=== PATIENT | female | born 1995 | race Caucasian/White ===

== ENCOUNTER 2017-01-05 05:19 | Emergency (ER) | payer OTHER ==
[2017-01-05] MEDS ORDERED: METOCLOPRAMIDE INJ 10MG/2ML VIAL (J2765) As Ordered ONE (05:37)
[2017-01-05 05:41] LABS: BASO % 0.1 % (0.0-1.0); EOS # 0.2 K/mm3 (0.0-0.50); EOS % 1.3 % (0.0-3.0); LARGE UNSTAINED CELL # 0.1 K/mm3 (0.0-0.4); LARGE UNSTAINED CELL % 0.5 % (0.0-4.0); LYMPH # 1.3 K/mm3 (1.5-6.5); LYMPH % 7.2 % (24.0-44.0); MEAN CORPUSCULAR HEMOGLOBIN 30.6 pg (27.0-33.0); MEAN CORPUSCULAR HGB CONC 33.4 g/dl (32.0-36.5); MEAN CORPUSCULAR VOLUME 91.6 fl (80.0-96.0); MONO # 0.5 K/mm3 (0.0-0.8); NEUTROPHILS # 15.4 K/mm3 (1.8-7.7); PLATELET COUNT, AUTOMATED 186 k/mm3 (150-450); RED CELL DISTRIBUTION WIDTH 12.1 % (11.5-14.5); WHITE BLOOD COUNT 17.5 K/mm3 (4.0-10.0)
[2017-01-05 06:02] LABS: ALBUMIN 3.9 GM/DL (3.2-5.2); ALBUMIN/GLOBULIN RATIO 1.18 (1.00-1.93); ALKALINE PHOSPHATASE 61 U/L (45-117); ALT/SGPT 35 U/L (12-78); AMYLASE 57 U/L (25-115); ANION GAP 6 MEQ/L (8-16); AST/SGOT 12 U/L (15-37); BILIRUBIN,DIRECT < 0.1 MG/DL (0.0-0.2); BILIRUBIN,TOTAL 0.3 MG/DL (0.2-1.0); BLOOD UREA NITROGEN 14 MG/DL (7-18); CALCIUM LEVEL 8.7 MG/DL (8.5-10.1); CARBON DIOXIDE LEVEL 28 MEQ/L (21-32); CHLORIDE LEVEL 109 MEQ/L (98-107); GLOMERULAR FILTRATION RATE > 60.0 (>60); GLUCOSE, FASTING 98 MG/DL (70-105); POTASSIUM SERUM 3.7 MEQ/L (3.5-5.1); SODIUM LEVEL 143 MEQ/L (136-145); TOTAL PROTEIN 7.2 GM/DL (6.4-8.2)
--- NOTE | 2017-01-05 06:32 | EDDOCDS ---
Physician Documentation [facility] Name: Jerry Epstein Age: 21 yrs Sex: Female : 1995 Arrival Date: 01/05/2017 Time: 05:19 Bed 9 Private MD: Disposition: 01/05/17 06:14 Discharged to Home/Self Care. Impression: Infectious gastroenteritis and colitis, unspecified - viral. - Condition is Stable. - Discharge Instructions: Clear Liquid Diet. - Prescriptions for Reglan 10 mg Oral Tablet - take 1 tablet by ORAL route every 6 hours take 30 minutes before meals and at bedtime; 20 tablet. - Medication Reconciliation, Local Pharmacy Hours form. - Follow up: [facility]; When: Call to arrange an appointment; Reason: Recheck today's complaints. - Problem is new. - Symptoms have improved. Historical: - Allergies: IODINEIODINE CONTAINING; Keflex; - Home Meds: 1. Maxalt 10 mg oral tab 1 tab - PMHx: Migraines; - PSHx: jaw surgery; - Social history: Smoking status: Patient states was never smoker of tobacco. No barriers to communication noted, The patient speaks fluent Polish, Speaks appropriately for age. - Family history: Not pertinent. - : The pt / caregiver states he / she is not on anticoagulants. Home medication list is obtained from the patient. - Exposure Risk Screening:: None identified. PSYCHOLOGIST: 01/05 05:26 LMP N/A - control method sls1 Vital Signs: 05:26 BP 122 / 64; Pulse 100; Resp 18; Pulse Ox 98% on R/A; Weight 56.25 kg / 124.01 lbs; sls1 Height 62 in. (157.48 cm); Pain 10/10; 05:30 Temp 97.8(TE); sls1 06:21 BP 111 / 57; Pulse 86; Resp 18; Temp 99.1(TE); Pulse Ox 99% on R/A; Pain 8/10; mdr 05:26 Body Mass Index 22.68 (56.25 kg, 157.48 cm) sls1 MDM: 05:30 IV Saline Lock ordered. cs11 05:30 NS 0.9% 1000 ml IV at bolus once ordered. cs11 05:30 Metoclopramide 10 mg IV at 40 mg/hr once over 15 mins ordered. cs11 05:30 CBC with Diff Ordered. EDMS 05:30 MED Profile Ordered. EDMS 05:30 Liver Profile Ordered. EDMS 05:30 Amylase Ordered. EDMS 05:31 Lipase Ordered. EDMS 05:48 CBC with Diff Reviewed. cs11 05:52 Financial registration complete. hs2 05:52 [facility] Payment Agreement was scanned into [employer] and attached to record. hs2 06:11 MED Profile Reviewed. cs11 06:11 Liver Profile Reviewed. cs11 06:11 Amylase Reviewed. cs11 06:11 Lipase Reviewed. cs11 Administered Medications: 05:45 Drug: NS 0.9% 1000 ml [sodium chloride 0.9 % intravenous solution] Route: IV; Rate: kas2 bolus; Site: left antecubital; 06:30 Follow up: IV Status: Completed infusion; IV Intake: 1000ml cf2 05:46 Drug: Metoclopramide 10 mg [metoclopramide 5 mg/mL injection solution] Route: IV; Rate: kas2 40 mg/hr; Infused Over: 15 mins; Site: left antecubital; Signatures: Dispatcher [employer] Afshan Hobson RN RN sls1 Yevgeniy Joe DO DO cs11 Priya Enriquez, Reg Reg hs2 Celeste Lee RN RN cf2 Sarah Branham RN kas2 The chart was reviewed and I authenticate all verbal orders and agree with the evaluation and treatment provided.Attachments: 05:52 [facility] Payment Agreement hs2 MTDD
--- NOTE | 2017-01-05 06:32 | EDDOCDS ---
Nurse's Notes [facility] Name: Jerry Epstein Age: 21 yrs Sex: Female : 1995 Arrival Date: 01/05/2017 Time: 05:19 Bed 9 Private MD: Diagnosis: Infectious gastroenteritis and colitis, unspecified-viral Presentation: 01/05 05:24 Presenting complaint: Patient states: thinks she has food poisoning, reports woke at 3 sls1 am vomiting, reports cold sweats, diarrhea. Suicide/Homicide risk assessment- the patient denies having any suicidal and/or homicidal ideations and does not present with any other emotional, behavioral or mental health complaints. 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 Transition of care: patient was not received from another setting of care. 05:24 Acuity: YENNIFER Level 3 sls1 05:24 Method Of Arrival: Walkin/Carried/Asstd sls1 06:31 Adult Sepsis Screening: The patient does not have new or worsening altered mentation. cf2 Patient's respiratory rate is less than 22. Systolic blood pressure is greater than 100. Patient has a qSOFA score of 0- Negative Sepsis Screen. Triage Assessment: 05:26 General: Appears in no apparent distress, Behavior is appropriate for age, cooperative. sls1 Pain: Location: abdomen Pain currently is 10 out of 10 on a pain scale. Pt Declines HIV testing. Neurological: No deficits noted. Respiratory: No deficits noted. GI: Reports bloating, cramping, diarrhea, nausea, vomiting. ALLERGIST/MD: 05:26 LMP N/A - control method sls1 Historical: - Allergies: IODINEIODINE CONTAINING; Keflex; - Home Meds: 1. Maxalt 10 mg oral tab 1 tab - PMHx: Migraines; - PSHx: jaw surgery; - Social history: Smoking status: Patient states was never smoker of tobacco. No barriers to communication noted, The patient speaks fluent Kiswahili, Speaks appropriately for age. - Family history: Not pertinent. - : The pt / caregiver states he / she is not on anticoagulants. Home medication list is obtained from the patient. - Exposure Risk Screening:: None identified. Screenin:45 Screening information is obtained from the patient. Fall risk: No risks identified. kas2 Assistance ADL's: requires no assistance with activities of daily living. Abuse/DV Screen: The patient / caregiver reports he/she is: not in a situation that causes fear, pain or injury. Nutritional screening: No deficits noted. Advance Directives: Currently, there is no health care proxy. There is no active DNR order. There is no living will. There is no Power of Waters[employer] Program Manager. home support is adequate. Assessment: 05:43 General: Appears in no apparent distress, uncomfortable, well nourished, well groomed, kas2 Behavior is appropriate for age, cooperative. Pain: Location: abdomen Pain currently is 5 out of 10 on a pain scale. Neurological: Level of Consciousness is awake, alert, Oriented to person, place, time. Cardiovascular: Capillary refill < 3 seconds Heart tones S1 S2 present Rhythm is sinus tachycardia No ectopy. Chest pain is denied. Respiratory: Airway is patent Respiratory effort is even, unlabored, Respiratory pattern is regular, symmetrical, Breath sounds are clear bilaterally. GI: Abdomen is flat, non- distended Bowel sounds present X 4 quads. Abd is tender to palpation X 4 quads. Reports diarrhea, nausea, vomiting. Derm: Skin is intact, Skin is dry, Skin is pink, warm & dry. Skin temperature is warm. Vital Signs: 05:26 BP 122 / 64; Pulse 100; Resp 18; Pulse Ox 98% on R/A; Weight 56.25 kg; Height 62 in. [facility] (157.48 cm); Pain 10/10; 05:30 Temp 97.8(TE); sls1 06:21 BP 111 / 57; Pulse 86; Resp 18; Temp 99.1(TE); Pulse Ox 99% on R/A; Pain 8/10; mdr 05:26 Body Mass Index 22.68 (56.25 kg, 157.48 cm) [facility] Vitals: 05:26 Log In Time: January 05, 2017 at 05:19. [facility] ED Course: 05:21 Patient visited by Van Wright Reg. pm4 05:21 Patient moved to Waiting pm4 05:25 Triage Initiated [facility] 05:28 Sarah Branham,RN is Primary Nurse. [facility] 05:28 Patient moved to 9 [facility] 05:29 Yevgeniy Joe DO is Attending Physician. [facility] 05:29 Patient visited by Yevgeniy Joe DO. 11 05:45 Inserted saline lock: 20 gauge in left antecubital area and blood collected. The kas2 patient tolerated the procedure well. No procedures done that require assistance. 05:46 Patient visited by Sarah Branham RN. kas2 05:52 [facility] Payment Agreement was scanned into [employer] and attached to record. hs2 05:55 Patient name changed from Jerry\S\\S\Aetonu\S\ to Jerry\S\Nicole\S\Aetonu. EDMS 06:14 [facility] cs11 06:14 Patient visited by Sarah Branham RN. kas2 06:21 Patient visited by Deonte Connors PCA. mdr 06:30 Discontinued IV bleeding controlled, pressure dressing applied. cf2 06:31 The patient / caregiver is instructed regarding the plan of care and ED course. cf2 Administered Medications: 05:45 Drug: NS 0.9% 1000 ml [sodium chloride 0.9 % intravenous solution] Route: IV; Rate: kas2 bolus; Site: left antecubital; 06:30 Follow up: IV Status: Completed infusion; IV Intake: 1000ml cf2 05:46 Drug: Metoclopramide 10 mg [metoclopramide 5 mg/mL injection solution] Route: IV; Rate: kas2 40 mg/hr; Infused Over: 15 mins; Site: left antecubital; Intake: 06:30 IV: 1000.00ml; Total: 1000.00ml. cf2 Order Results: Lab Order: CBC with Diff; SPEC'M 01/05/17 05:36 Test: WHITE BLOOD COUNT; Value: 17.5; Range: 4.0-10.0; Abnormal: Above high normal; Units: K/mm3; Status: F Test: RED BLOOD COUNT; Value: 4.52; Range: 4.00-5.40; Units: M/mm3; Status: F Test: HEMOGLOBIN; Value: 13.8; Range: 12.0-16.0; Units: g/dl; Status: F Test: HEMATOCRIT; Value: 41.4; Range: 36.0-47.0; Units: %; Status: F Test: MEAN CORPUSCULAR VOLUME; Value: 91.6; Range: 80.0-96.0; Units: fl; Status: F Test: MEAN CORPUSCULAR HEMOGLOBIN; Value: 30.6; Range: 27.0-33.0; Units: pg; Status: F Test: MEAN CORPUSCULAR HGB CONC; Value: 33.4; Range: 32.0-36.5; Units: g/dl; Status: F Test: RED CELL DISTRIBUTION WIDTH; Value: 12.1; Range: 11.5-14.5; Units: %; Status: F Test: PLATELET COUNT, AUTOMATED; Value: 186; Range: 150-450; Units: k/mm3; Status: F Test: NEUTROPHILS %; Value: 88.0; Range: 36.0-66.0; Abnormal: Above high normal; Units: %; Status: F Test: LYMPH %; Value: 7.2; Range: 24.0-44.0; Abnormal: Below low normal; Units: %; Status: F Test: MONO %; Value: 3.0; Range: 0.0-5.0; Units: %; Status: F Test: EOS %; Value: 1.3; Range: 0.0-3.0; Units: %; Status: F Test: BASO %; Value: 0.1; Range: 0.0-1.0; Units: %; Status: F Test: LARGE UNSTAINED CELL %; Value: 0.5; Range: 0.0-4.0; Units: %; Status: F Test: NEUTROPHILS #; Value: 15.4; Range: 1.8-7.7; Abnormal: Above high normal; Units: K/mm3; Status: F Test: LYMPH #; Value: 1.3; Range: 1.5-6.5; Abnormal: Below low normal; Units: K/mm3; Status: F Test: MONO #; Value: 0.5; Range: 0.0-0.8; Units: K/mm3; Status: F Test: EOS #; Value: 0.2; Range: 0.0-0.50; Units: K/mm3; Status: F Test: BASO #; Value: 0.0; Range: 0.0-0.2; Units: K/mm3; Status: F Test: LARGE UNSTAINED CELL #; Value: 0.1; Range: 0.0-0.4; Units: K/mm3; Status: F Lab Order: MED Profile; SPEC'M 01/05/17 05:36 Test: GLUCOSE, FASTING; Value: 98; Range: 70-105; Units: MG/DL; Status: F Test: BLOOD UREA NITROGEN; Value: 14; Range: 7-18; Units: MG/DL; Status: F Test: CREATININE FOR GFR; Value: 0.70; Range: 0.55-1.02; Units: MG/DL; Status: F Test: GLOMERULAR FILTRATION RATE; Value: > 60.0; Range: >60; Status: F Test: SODIUM LEVEL; Value: 143; Range: 136-145; Units: MEQ/L; Status: F Test: POTASSIUM SERUM; Value: 3.7; Range: 3.5-5.1; Units: MEQ/L; Status: F Test: CHLORIDE LEVEL; Value: 109; Range: 98-107; Abnormal: Above high normal; Units: MEQ/L; Status: F Test: CARBON DIOXIDE LEVEL; Value: 28; Range: 21-32; Units: MEQ/L; Status: F Test: ANION GAP; Value: 6; Range: 8-16; Abnormal: Below low normal; Units: MEQ/L; Status: F Test: CALCIUM LEVEL; Value: 8.7; Range: 8.5-10.1; Units: MG/DL; Status: F Test Note: ; Units are mL/min/1.73 m2 Chronic Kidney Disease Staging per NKF: Stage I & II GFR >=60 Normal to Mildly Decreased Stage III GFR 30-59 Moderately Decreased Stage IV GFR 15-29 Severely Decreased Stage V GFR <15 Very Little GFR Left ESRD GFR <15 on HYSTER DRIVER Lab Order: Liver Profile; [facility]01/05/17 05:36 Test: AST/SGOT; Value: 12; Range: 15-37; Abnormal: Below low normal; Units: U/L; Status: F Test: ALT/SGPT; Value: 35; Range: 12-78; Units: U/L; Status: F Test: ALKALINE PHOSPHATASE; Value: 61; Range: 45-117; Units: U/L; Status: F Test: BILIRUBIN,TOTAL; Value: 0.3; Range: 0.2-1.0; Units: MG/DL; Status: F Test: BILIRUBIN,DIRECT; Value: < 0.1; Range: 0.0-0.2; Units: MG/DL; Status: F Test: TOTAL PROTEIN; Value: 7.2; Range: 6.4-8.2; Units: GM/DL; Status: F Test: ALBUMIN; Value: 3.9; Range: 3.2-5.2; Units: GM/DL; Status: F Test: ALBUMIN/GLOBULIN RATIO; Value: 1.18; Range: 1.00-1.93; Status: F Lab Order: Amylase; SPEC'M 01/05/17 05:36 Test: AMYLASE; Value: 57; Range: 25-115; Units: U/L; Status: F Lab Order: Lipase; SPEC'M 01/05/17 05:36 Test: LIPASE; Value: 114; Range: 73-393; Units: U/L; Status: F Outcome: 06:14 Discharge ordered by Provider. cs11 06:31 Discharge Assessment: patient administered narcotics - no. The following High Risk cf2 Discharge criteria are identified: None. Discharged to home ambulatory, with significant other. Condition: good Condition: stable Condition: improved. No special radiology studies were completed. Property :Personal belongings accompany Pt. 06:31 Patient left the ED. cf2 Signatures: Dispatcher [employer] EDMS Afshan Santana RN RN sls1 Yevgeniy Joe, DO DO cs11 Deonte Connors, POWDER MIXER POWDER MIXER Priya De Jesus, Reg Reg hs2 Sarah Branham,RN RN kas2 Celeste Lee RN RN cf2 Van Wright, Reg Reg pm4 MTDD
--- NOTE | 2017-01-07 07:32 | EDDOCDS ---
Nurse's Notes [facility] Name: Jerry Epstein Age: 21 yrs Sex: Female : 1995 Arrival Date: 01/05/2017 Time: 05:19 Bed 9 Private MD: Diagnosis: Infectious gastroenteritis and colitis, unspecified-viral Presentation: 01/05 05:24 Presenting complaint: Patient states: thinks she has food poisoning, reports woke at 3 sls1 am vomiting, reports cold sweats, diarrhea. Suicide/Homicide risk assessment- the patient denies having any suicidal and/or homicidal ideations and does not present with any other emotional, behavioral or mental health complaints. 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 Transition of care: patient was not received from another setting of care. 05:24 Acuity: YENNIFER Level 3 sls1 05:24 Method Of Arrival: Walkin/Carried/Asstd sls1 06:31 Adult Sepsis Screening: The patient does not have new or worsening altered mentation. cf2 Patient's respiratory rate is less than 22. Systolic blood pressure is greater than 100. Patient has a qSOFA score of 0- Negative Sepsis Screen. Triage Assessment: 05:26 General: Appears in no apparent distress, Behavior is appropriate for age, cooperative. sls1 Pain: Location: abdomen Pain currently is 10 out of 10 on a pain scale. Pt Declines HIV testing. Neurological: No deficits noted. Respiratory: No deficits noted. GI: Reports bloating, cramping, diarrhea, nausea, vomiting. 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 Maxalt 10 mg oral tab 1 tab - PMHx: Migraines; - PSHx: jaw surgery; - Social history: Smoking status: Patient states was never smoker of tobacco. No barriers to communication noted, The patient speaks fluent Polish, Speaks appropriately for age. - Family history: Not pertinent. - : The pt / caregiver states he / she is not on anticoagulants. Home medication list is obtained from the patient. - Exposure Risk Screening:: None identified. Screenin:45 Screening information is obtained from the patient. Fall risk: No risks identified. kas2 Assistance ADL's: requires no assistance with activities of daily living. Abuse/DV Screen: The patient / caregiver reports he/she is: not in a situation that causes fear, pain or injury. Nutritional screening: No deficits noted. Advance Directives: Currently, there is no health care proxy. There is no active DNR order. There is no living will. There is no Power of [place]. home support is adequate. Assessment: 05:43 General: Appears in no apparent distress, uncomfortable, well nourished, well groomed, kas2 Behavior is appropriate for age, cooperative. Pain: Location: abdomen Pain currently is 5 out of 10 on a pain scale. Neurological: Level of Consciousness is awake, alert, Oriented to person, place, time. Cardiovascular: Capillary refill < 3 seconds Heart tones S1 S2 present Rhythm is sinus tachycardia No ectopy. Chest pain is denied. Respiratory: Airway is patent Respiratory effort is even, unlabored, Respiratory pattern is regular, symmetrical, Breath sounds are clear bilaterally. GI: Abdomen is flat, non- distended Bowel sounds present X 4 quads. Abd is tender to palpation X 4 quads. Reports diarrhea, nausea, vomiting. Derm: Skin is intact, Skin is dry, Skin is pink, warm & dry. Skin temperature is warm. Vital Signs: 05:26 BP 122 / 64; Pulse 100; Resp 18; Pulse Ox 98% on R/A; Weight 56.25 kg; Height 62 in. [facility] (157.48 cm); Pain 10/10; 05:30 Temp 97.8(TE); sls1 06:21 BP 111 / 57; Pulse 86; Resp 18; Temp 99.1(TE); Pulse Ox 99% on R/A; Pain 8/10; mdr 05:26 Body Mass Index 22.68 (56.25 kg, 157.48 cm) [facility] Vitals: 05:26 Log In Time: January 05, 2017 at 05:19. [facility] ED Course: 05:21 Patient visited by Van Wright Reg. pm4 05:21 Patient moved to Waiting pm4 05:25 Triage Initiated [facility] 05:28 Sarah Branham,RN is Primary Nurse. [facility] 05:28 Patient moved to 9 [facility] 05:29 Yevgeniy Joe DO is Attending Physician. [facility] 05:29 Patient visited by Yevgeniy Joe DO. 11 05:45 Inserted saline lock: 20 gauge in left antecubital area and blood collected. The kas2 patient tolerated the procedure well. No procedures done that require assistance. 05:46 Patient visited by Sarah Branham RN. kas2 05:52 [facility] Payment Agreement was scanned into [employer] and attached to record. hs2 05:55 Patient name changed from Jerry\S\\S\Aetonu\S\ to Jerry\S\Nicole\S\Aetonu. EDMS 06:14 [facility]. cs11 06:14 Patient visited by Sarah Branham RN. kas2 06:21 Patient visited by Deonte Connors PCA. mdr 06:30 Discontinued IV bleeding controlled, pressure dressing applied. cf2 06:31 The patient / caregiver is instructed regarding the plan of care and ED course. cf2 14:00 T-Sheet-- Draft Copy was scanned into [employer] and attached to record. gb Administered Medications: 05:45 Drug: NS 0.9% 1000 ml [sodium chloride 0.9 % intravenous solution] Route: IV; Rate: kas2 bolus; Site: left antecubital; 06:30 Follow up: IV Status: Completed infusion; IV Intake: 1000ml cf2 05:46 Drug: Metoclopramide 10 mg [metoclopramide 5 mg/mL injection solution] Route: IV; Rate: kas2 40 mg/hr; Infused Over: 15 mins; Site: left antecubital; Intake: 06:30 IV: 1000.00ml; Total: 1000.00ml. cf2 Order Results: Lab Order: CBC with Diff; SPEC'M 01/05/17 05:36 Test: WHITE BLOOD COUNT; Value: 17.5; Range: 4.0-10.0; Abnormal: Above high normal; Units: K/mm3; Status: F Test: RED BLOOD COUNT; Value: 4.52; Range: 4.00-5.40; Units: M/mm3; Status: F Test: HEMOGLOBIN; Value: 13.8; Range: 12.0-16.0; Units: g/dl; Status: F Test: HEMATOCRIT; Value: 41.4; Range: 36.0-47.0; Units: %; Status: F Test: MEAN CORPUSCULAR VOLUME; Value: 91.6; Range: 80.0-96.0; Units: fl; Status: F Test: MEAN CORPUSCULAR HEMOGLOBIN; Value: 30.6; Range: 27.0-33.0; Units: pg; Status: F Test: MEAN CORPUSCULAR HGB CONC; Value: 33.4; Range: 32.0-36.5; Units: g/dl; Status: F Test: RED CELL DISTRIBUTION WIDTH; Value: 12.1; Range: 11.5-14.5; Units: %; Status: F Test: PLATELET COUNT, AUTOMATED; Value: 186; Range: 150-450; Units: k/mm3; Status: F Test: NEUTROPHILS %; Value: 88.0; Range: 36.0-66.0; Abnormal: Above high normal; Units: %; Status: F Test: LYMPH %; Value: 7.2; Range: 24.0-44.0; Abnormal: Below low normal; Units: %; Status: F Test: MONO %; Value: 3.0; Range: 0.0-5.0; Units: %; Status: F Test: EOS %; Value: 1.3; Range: 0.0-3.0; Units: %; Status: F Test: BASO %; Value: 0.1; Range: 0.0-1.0; Units: %; Status: F Test: LARGE UNSTAINED CELL %; Value: 0.5; Range: 0.0-4.0; Units: %; Status: F Test: NEUTROPHILS #; Value: 15.4; Range: 1.8-7.7; Abnormal: Above high normal; Units: K/mm3; Status: F Test: LYMPH #; Value: 1.3; Range: 1.5-6.5; Abnormal: Below low normal; Units: K/mm3; Status: F Test: MONO #; Value: 0.5; Range: 0.0-0.8; Units: K/mm3; Status: F Test: EOS #; Value: 0.2; Range: 0.0-0.50; Units: K/mm3; Status: F Test: BASO #; Value: 0.0; Range: 0.0-0.2; Units: K/mm3; Status: F Test: LARGE UNSTAINED CELL #; Value: 0.1; Range: 0.0-0.4; Units: K/mm3; Status: F Lab Order: MED Profile; SPEC'M 01/05/17 05:36 Test: GLUCOSE, FASTING; Value: 98; Range: 70-105; Units: MG/DL; Status: F Test: BLOOD UREA NITROGEN; Value: 14; Range: 7-18; Units: MG/DL; Status: F Test: CREATININE FOR GFR; Value: 0.70; Range: 0.55-1.02; Units: MG/DL; Status: F Test: GLOMERULAR FILTRATION RATE; Value: > 60.0; Range: >60; Status: F Test: SODIUM LEVEL; Value: 143; Range: 136-145; Units: MEQ/L; Status: F Test: POTASSIUM SERUM; Value: 3.7; Range: 3.5-5.1; Units: MEQ/L; Status: F Test: CHLORIDE LEVEL; Value: 109; Range: 98-107; Abnormal: Above high normal; Units: MEQ/L; Status: F Test: CARBON DIOXIDE LEVEL; Value: 28; Range: 21-32; Units: MEQ/L; Status: F Test: ANION GAP; Value: 6; Range: 8-16; Abnormal: Below low normal; Units: MEQ/L; Status: F Test: CALCIUM LEVEL; Value: 8.7; Range: 8.5-10.1; Units: MG/DL; Status: F Test Note: ; Units are mL/min/1.73 m2 Chronic Kidney Disease Staging per NKF: Stage I & II GFR >=60 Normal to Mildly Decreased Stage III GFR 30-59 Moderately Decreased Stage IV GFR 15-29 Severely Decreased Stage V GFR <15 Very Little GFR Left ESRD GFR <15 on LOOP TACKER Lab Order: Liver Profile; SPEC'M 01/05/17 05:36 Test: AST/SGOT; Value: 12; Range: 15-37; Abnormal: Below low normal; Units: U/L; Status: F Test: ALT/SGPT; Value: 35; Range: 12-78; Units: U/L; Status: F Test: ALKALINE PHOSPHATASE; Value: 61; Range: 45-117; Units: U/L; Status: F Test: BILIRUBIN,TOTAL; Value: 0.3; Range: 0.2-1.0; Units: MG/DL; Status: F Test: BILIRUBIN,DIRECT; Value: < 0.1; Range: 0.0-0.2; Units: MG/DL; Status: F Test: TOTAL PROTEIN; Value: 7.2; Range: 6.4-8.2; Units: GM/DL; Status: F Test: ALBUMIN; Value: 3.9; Range: 3.2-5.2; Units: GM/DL; Status: F Test: ALBUMIN/GLOBULIN RATIO; Value: 1.18; Range: 1.00-1.93; Status: F Lab Order: Amylase; SPEC'M 01/05/17 05:36 Test: AMYLASE; Value: 57; Range: 25-115; Units: U/L; Status: F Lab Order: Lipase; SPEC'M 01/05/17 05:36 Test: LIPASE; Value: 114; Range: 73-393; Units: U/L; Status: F Outcome: 06:14 Discharge ordered by Provider. cs11 06:31 Discharge Assessment: patient administered narcotics - no. The following High Risk cf2 Discharge criteria are identified: None. Discharged to home ambulatory, with significant other. Condition: good Condition: stable Condition: improved. No special radiology studies were completed. Property :Personal belongings accompany Pt. 06:31 Patient left the ED. cf2 Signatures: Dispatcher [employer] Aurora Lawrence, Reg Reg Afshan Abdi, RN RN sls1 Yevgeniy Joe, DO DO cs11 Deonte Connors, SHIRT IRONER SHIRT IRONER Priya De Jesus, Reg Reg hs2 Sarah Branham RN RN [facility] Celeste LeeRN RN cf2 Van Wright, Reg Reg pm4 Chart Complete MTDD
--- NOTE | 2017-01-07 07:32 | EDDOCDS ---
Physician Documentation [facility] Name: Jerry Epstein Age: 21 yrs Sex: Female : 1995 Arrival Date: 01/05/2017 Time: 05:19 Bed 9 Private MD: Disposition: 01/05/17 06:14 Discharged to Home/Self Care. Impression: Infectious gastroenteritis and colitis, unspecified - viral. - Condition is Stable. - Discharge Instructions: Clear Liquid Diet. - Prescriptions for Reglan 10 mg Oral Tablet - take 1 tablet by ORAL route every 6 hours take 30 minutes before meals and at bedtime; 20 tablet. - Medication Reconciliation, Local Pharmacy Hours form. - Follow up: [facility]; When: Call to arrange an appointment; Reason: Recheck today's complaints. - Problem is new. - Symptoms have improved. Historical: - Allergies: IODINEIODINE CONTAINING; Keflex; - Home Meds: 1. Maxalt 10 mg oral tab 1 tab - PMHx: Migraines; - PSHx: jaw surgery; - Social history: Smoking status: Patient states was never smoker of tobacco. No barriers to communication noted, The patient speaks fluent Romanian, Speaks appropriately for age. - Family history: Not pertinent. - : The pt / caregiver states he / she is not on anticoagulants. Home medication list is obtained from the patient. - Exposure Risk Screening:: None identified. 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 (157.48 cm); Pain 10/10; 05:30 Temp 97.8(TE); sls1 06:21 BP 111 / 57; Pulse 86; Resp 18; Temp 99.1(TE); Pulse Ox 99% on R/A; Pain 8/10; mdr 05:26 Body Mass Index 22.68 (56.25 kg, 157.48 cm) sls1 MDM: 05:30 IV Saline Lock ordered. cs11 05:30 NS 0.9% 1000 ml IV at bolus once ordered. cs11 05:30 Metoclopramide 10 mg IV at 40 mg/hr once over 15 mins ordered. cs11 05:30 CBC with Diff Ordered. EDMS 05:30 MED Profile Ordered. EDMS 05:30 Liver Profile Ordered. EDMS 05:30 Amylase Ordered. EDMS 05:31 Lipase Ordered. EDMS 05:48 CBC with Diff Reviewed. cs11 05:52 Financial registration complete. hs2 05:52 [facility] Payment Agreement was scanned into [employer] and attached to record. hs2 06:11 MED Profile Reviewed. cs11 06:11 Liver Profile Reviewed. cs11 06:11 Amylase Reviewed. cs11 06:11 Lipase Reviewed. cs11 14:00 T-Sheet-- Draft Copy was scanned into [employer] and attached to record. gb Administered Medications: 05:45 Drug: NS 0.9% 1000 ml [sodium chloride 0.9 % intravenous solution] Route: IV; Rate: kas2 bolus; Site: left antecubital; 06:30 Follow up: IV Status: Completed infusion; IV Intake: 1000ml cf2 05:46 Drug: Metoclopramide 10 mg [metoclopramide 5 mg/mL injection solution] Route: IV; Rate: kas2 40 mg/hr; Infused Over: 15 mins; Site: left antecubital; Signatures: Dispatcher [employer] EDMS Aurora Ching, Reg Reg gb Afshan Santana RN RN sls1 Yevgeniy Joe DO DO cs11 Priya Enriquez, Reg Reg hs2 Celeste Lee RN RN cf2 Sarah Branham RN kas2 The chart was reviewed and I authenticate all verbal orders and agree with the evaluation and treatment provided.Attachments: 05:52 [facility] Payment Agreement hs2 14:00 T-Sheet-- Draft Copy gb Chart Complete MTDD
--- NOTE | 2017-01-07 07:32 | EDDOCDS ---
Physician Documentation [facility] Name: Jerry Epstein Age: 21 yrs Sex: Female : 1995 Arrival Date: 01/05/2017 Time: 05:19 Bed 9 Private MD: Disposition: 01/05/17 06:14 Discharged to Home/Self Care. Impression: Infectious gastroenteritis and colitis, unspecified - viral. - Condition is Stable. - Discharge Instructions: Clear Liquid Diet. - Prescriptions for Reglan 10 mg Oral Tablet - take 1 tablet by ORAL route every 6 hours take 30 minutes before meals and at bedtime; 20 tablet. - Medication Reconciliation, Local Pharmacy Hours form. - Follow up: [facility]; When: Call to arrange an appointment; Reason: Recheck today's complaints. - Problem is new. - Symptoms have improved. Historical: - Allergies: IODINEIODINE CONTAINING; Keflex; - Home Meds: 1. Maxalt 10 mg oral tab 1 tab - PMHx: Migraines; - PSHx: jaw surgery; - Social history: Smoking status: Patient states was never smoker of tobacco. No barriers to communication noted, The patient speaks fluent Lao, Speaks appropriately for age. - Family history: Not pertinent. - : The pt / caregiver states he / she is not on anticoagulants. Home medication list is obtained from the patient. - Exposure Risk Screening:: None identified. 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 (157.48 cm); Pain 10/10; 05:30 Temp 97.8(TE); sls1 06:21 BP 111 / 57; Pulse 86; Resp 18; Temp 99.1(TE); Pulse Ox 99% on R/A; Pain 8/10; mdr 05:26 Body Mass Index 22.68 (56.25 kg, 157.48 cm) sls1 MDM: 05:30 IV Saline Lock ordered. cs11 05:30 NS 0.9% 1000 ml IV at bolus once ordered. cs11 05:30 Metoclopramide 10 mg IV at 40 mg/hr once over 15 mins ordered. cs11 05:30 CBC with Diff Ordered. EDMS 05:30 MED Profile Ordered. EDMS 05:30 Liver Profile Ordered. EDMS 05:30 Amylase Ordered. EDMS 05:31 Lipase Ordered. EDMS 05:48 CBC with Diff Reviewed. cs11 05:52 Financial registration complete. hs2 05:52 [facility] Payment Agreement was scanned into [employer] and attached to record. hs2 06:11 MED Profile Reviewed. cs11 06:11 Liver Profile Reviewed. cs11 06:11 Amylase Reviewed. cs11 06:11 Lipase Reviewed. cs11 14:00 T-Sheet-- Draft Copy was scanned into [employer] and attached to record. gb Administered Medications: 05:45 Drug: NS 0.9% 1000 ml [sodium chloride 0.9 % intravenous solution] Route: IV; Rate: kas2 bolus; Site: left antecubital; 06:30 Follow up: IV Status: Completed infusion; IV Intake: 1000ml cf2 05:46 Drug: Metoclopramide 10 mg [metoclopramide 5 mg/mL injection solution] Route: IV; Rate: kas2 40 mg/hr; Infused Over: 15 mins; Site: left antecubital; Signatures: Dispatcher [employer] EDMS Aurora Ching, Reg Reg gb Afshan Santana RN RN sls1 Yevgeniy Joe DO DO cs11 Priya Enriquez, Reg Reg hs2 Celeste Lee RN RN cf2 Sarah Branham RN kas2 The chart was reviewed and I authenticate all verbal orders and agree with the evaluation and treatment provided.Attachments: 05:52 [facility] Payment Agreement hs2 14:00 T-Sheet-- Draft Copy gb Chart Complete MTDD
== END 2017-01-05 06:31 | disposition home or self-care (01) ==
LOC: M ED 05:19
DX: A08.4 Viral intestinal infection, unspecified (principal); G43.909 Migraine, unspecified, not intractable, without status migrainosus; Z88.1 Allergy status to other antibiotic agents; Z79.899 Other long term (current) drug therapy
CPT/HCPCS: 36415; 80048; 80076; 82150; 83690; 85025; 96361; 96374; 99284; J2765

== ENCOUNTER → 2017-01-31 | Outpatient (REF) | payer OTHER ==
[2017-01-31 12:25] LABS: BASO % 0.3 % (0.0-1.0); EOS # 0.3 K/mm3 (0.0-0.50); EOS % 4.4 % (0.0-3.0); LARGE UNSTAINED CELL # 0.1 K/mm3 (0.0-0.4); LYMPH # 2.7 K/mm3 (1.5-6.5); LYMPH % 41.5 % (24.0-44.0); MEAN CORPUSCULAR HEMOGLOBIN 31.9 pg (27.0-33.0); MEAN CORPUSCULAR HGB CONC 35.3 g/dl (32.0-36.5); MEAN CORPUSCULAR VOLUME 90.2 fl (80.0-96.0); MONO # 0.4 K/mm3 (0.0-0.8); MONO % 5.7 % (0.0-5.0); NEUTROPHILS # 2.8 K/mm3 (1.8-7.7); NEUTROPHILS % 46.1 % (36.0-66.0); PLATELET COUNT, AUTOMATED 214 k/mm3 (150-450); WHITE BLOOD COUNT 6.2 K/mm3 (4.0-10.0)
[2017-01-31 12:50] LABS: ALBUMIN 4.2 GM/DL (3.2-5.2); ALKALINE PHOSPHATASE 65 U/L (45-117); ALT/SGPT 16 U/L (12-78); ANION GAP 8 MEQ/L (8-16); AST/SGOT 10 U/L (15-37); BILIRUBIN,TOTAL 0.4 MG/DL (0.2-1.0); BLOOD UREA NITROGEN 10 MG/DL (7-18); CALCIUM LEVEL 8.8 MG/DL (8.5-10.1); CARBON DIOXIDE LEVEL 27 MEQ/L (21-32); CHLORIDE LEVEL 105 MEQ/L (98-107); CREATININE FOR GFR 0.79 MG/DL (0.55-1.02); GLOMERULAR FILTRATION RATE > 60.0 (>60); GLUCOSE, FASTING 82 MG/DL (70-105); POTASSIUM SERUM 3.6 MEQ/L (3.5-5.1); SODIUM LEVEL 140 MEQ/L (136-145); TOTAL PROTEIN 7.2 GM/DL (6.4-8.2)
[2017-01-31 12:54] LABS: ERYTHROCYTE SEDIMENTATION RATE 7 mm/hr (0-20)
== END ==
LOC: M LABNEURO 11:45
PROVIDERS: ATTEND Psychiatry & Neurology Neurology
DX: R51 Headache (principal)

== ENCOUNTER → 2017-08-24 | Outpatient (CLI) | payer OTHER | LOC: M RAD 11:31 | PROVIDERS: ATTEND Surgery Vascular Surgery | DX: Z53.8 Procedure and treatment not carried out for other reasons (principal) ==

== ENCOUNTER → 2017-09-01 | Outpatient (CLI) | payer OTHER ==
[~2017-09-01] MED LIST: ISOVUE-370 76% 100ML VIAL (Q9967) As Ordered ONE
--- NOTE | 2017-09-01 10:21 | REP ---
CT angiogram of the abdomen and pelvis with IV contrast: History: Paraspinal AVM. Arteriovenous. Comparison is made with MRI study of the pelvis from 04/18/2017. This is read as showing a highly vascular abnormality consistent with hemangioma in the subcutaneous right para lumbar region. CT contrast dose: 100 ml of intravenous Isovue 370. Technique: Helical scanning is acquired. 3 mm axial images are reformatted. Coronal and sagittal multiplanar re-formation images are generated and reviewed. 3-D workstation generated maximal intensity projection images are reviewed. In addition, 3-D surface rendered rotational color images are generated and reviewed. CT findings: Bowel gas pattern is unremarkable on initial digital spring maker view of the abdomen and pelvis. The lung bases are clear. No nonvascular abnormality is seen. The uterus is slightly retroverted and tipped to the left. No abnormal intra-abdominal or pelvic vascular malformation is seen. Visceral artery origins are unremarkable and nonstenotic bilaterally. Iliac arteries are unremarkable bilaterally. No evidence of atherosclerosis or fibromuscular dysplasia. The previously noted pattern of vascular-like channels in the subcutaneous fat layer of the right para lumbar region is again seen on CT however these structures do not opacify with arterial phase CT angiographic imaging. There are two adjacent calcifications in the deep subcutaneous fat layer. This is compatible with a relatively slow flow vascular malformation or conceivably a lymphatic malformation. Maximal intensity projection and multiplanar re-formation images show no additional abnormality. Surface rendered 3-D images show no abnormality. Impression: Negative CT ANGIO of the abdomen and pelvis. Vascular channels in the deep subcutaneous fat layer of the right para lumbar region are not opacified on arterial phase imaging. Slow flow vascular lesion such as hemangioma or lymphangioma would be possibilities. Signed by Farooq Blanco MD 09/01/2017 03:08 P
== END ==
LOC: M RAD 07:40
PROVIDERS: ATTEND Surgery Vascular Surgery
DX: Q27.30 Arteriovenous malformation, site unspecified (principal)

== ENCOUNTER 2018-10-08 08:35 | Emergency (ER) | payer OTHER ==
[2018-10-08] MEDS: NS 1,000 ML IV (09:37)
[2018-10-08] MEDS: ONDANSETRON 4MG/2ML VIAL (J2405) IV (09:37)
[2018-10-08 11:09] LABS: AMORPHOUS SEDIMENT RFX SMALL (NEGATIVE); KETONE, URINE AUTO RFX NEGATIVE (NEGATIVE); MUCUS, URINE RFX MODERATE (NEGATIVE); RBC, URINE AUTO RFX 1 /HPF (0-3); SPECIFIC GRAVITY UR AUTO RFX 1.018 (1.002-1.035); SQUAM EPITHELIAL CELL UR AURFX 3 /HPF (0-6); TRANSITIONAL EPITHELIAL AU RFX 1 /HPF; WBC, URINE AUTO RFX 7 /HPF (0-3)
[2018-10-08 11:11] LABS: LEUKOCYTE ESTERASE UR AUTO RFX 1+ (NEGATIVE); NITRITE, URINE AUTO RFX POSITIVE (NEGATIVE)
== END 2018-10-08 11:39 | disposition home or self-care (01) ==
LOC: M ED 08:35
DX: O23.41 Unspecified infection of urinary tract in pregnancy, first trimester (principal)
CPT/HCPCS: J2405

== ENCOUNTER 2018-10-14 10:03 | Emergency (ER) | payer OTHER ==
[2018-10-14] MEDS: ACETAMINOPHEN TAB 650MG DOSE (2X325MG) PO (10:36)
== END 2018-10-14 10:49 | disposition home or self-care (01) ==
LOC: M ED 10:03
DX: M54.5 Low back pain (principal)
CPT/HCPCS: 99282

== ENCOUNTER 2018-10-28 12:46 | Emergency (ER) | payer OTHER ==
[2018-10-28] MEDS: ONDANSETRON 4MG/2ML VIAL (J2405) IV (13:15)
[2018-10-28] MEDS: NS 1,000 ML IV (13:15)
[2018-10-28 14:21] LABS: INFLUENZA A AMPLIFICATION NEGATIVE (NEGATIVE); INFLUENZA B AMPLIFICATION NEGATIVE (NEGATIVE)
== END 2018-10-28 15:19 | disposition home or self-care (01) ==
LOC: M ED 12:46
DX: O99.511 Diseases of the respiratory system complicating pregnancy, first trimester (principal); J06.9 Acute upper respiratory infection, unspecified; Z3A.11 11 weeks gestation of pregnancy; Z88.1 Allergy status to other antibiotic agents; Z88.8 Allergy status to other drugs, medicaments and biological substances
CPT/HCPCS: J2405

== ENCOUNTER 2018-11-26 07:37 | Emergency (ER) | payer OTHER ==
[~2018-11-26] VITALS: Ht 157.5 cm; Wt 58.8 kg
[~2018-11-26 07:37] MED LIST changes: -ISOVUE-370 76% 100ML VIAL (Q9967) As Ordered ONE; +MACR100C43 PO; +PRENTAB56 PO; +TYLENOL; +ZOFR4TAB14 PO; +ZOFR4TAB14 SL
[2018-11-26] MEDS ORDERED: NITR100C2 (07:53)
[2018-11-26 09:12] LABS: BASO % 0.2 % (0.0-1.0); EOS # 0.1 10^3/uL (0.0-0.50); EOS % 0.9 % (0.0-3.0); HEMATOCRIT 35.7 % (36.0-47.0); HEMOGLOBIN 12.7 g/dl (12.0-15.5); LYMPH # 1.8 10^3/uL (1.5-6.5); LYMPH % 18.7 % (24.0-44.0); MEAN CORPUSCULAR HEMOGLOBIN 31.3 pg (27.0-33.0); MEAN CORPUSCULAR HGB CONC 35.6 g/dl (32.0-36.5); MEAN CORPUSCULAR VOLUME 87.9 fl (80.0-96.0); MONO # 0.7 10^3/uL (0.0-0.8); MONO % 6.9 % (0.0-5.0); NEUTROPHILS # 7.2 10^3/uL (1.8-7.7); NEUTROPHILS % 72.8 % (36.0-66.0); PLATELET COUNT, AUTOMATED 203 10^3/uL (150-450); RED BLOOD COUNT 4.06 10^6/uL (4.00-5.40); WHITE BLOOD COUNT 9.9 10^3/uL (4.0-10.0)
[2018-11-26] MEDS ORDERED: NS 1,000 ML IV ONE (09:15)
[2018-11-26] MEDS ORDERED: METOCLOPRAMIDE INJ 10MG/2ML VIAL (J2765) IV ONE (09:15)
[2018-11-26 09:39] LABS: ALBUMIN 3.5 GM/DL (3.2-5.2); ALT/SGPT 21 U/L (12-78); AMYLASE 55 U/L (25-115); BILIRUBIN,DIRECT 0.2 MG/DL (0.0-0.2); BILIRUBIN,TOTAL 0.5 MG/DL (0.2-1.0); BLOOD UREA NITROGEN 6 MG/DL (7-18); CARBON DIOXIDE LEVEL 25 MEQ/L (21-32); CHLORIDE LEVEL 102 MEQ/L (98-107); CREATININE FOR GFR 0.64 MG/DL (0.55-1.30); GLOMERULAR FILTRATION RATE > 60.0 (>60); GLUCOSE, FASTING 77 MG/DL (70-100); LIPASE 83 U/L (73-393); POTASSIUM SERUM 3.3 MEQ/L (3.5-5.1); SODIUM LEVEL 135 MEQ/L (136-145); TOTAL PROTEIN 7.3 GM/DL (6.4-8.2)
[2018-11-26] MEDS ORDERED: MACR100C43 PO (09:58)
[2018-11-26] MEDS ORDERED: ZOFR4TAB14 PO (09:58)
[2018-11-26 09:59] VITALS: BP 100/53
== END 2018-11-26 10:20 | disposition home or self-care (01) ==
LOC: M ED 07:37
DX: O23.10 Infections of bladder in pregnancy, unspecified trimester (principal); N30.00 Acute cystitis without hematuria
CPT/HCPCS: 36415; 80048; 80076; 81001; 82150; 83690; 85025; 87086; 96361; 96374; 99284; J2765

== ENCOUNTER 2019-03-25 07:02 | Outpatient (CLI) | payer OTHER ==
[~2019-03-25] VITALS: Ht 157.5 cm; Wt 70.4 kg
[~2019-03-25 07:02] MED LIST changes: +NITR100C2
[2019-03-25 07:32] VITALS: BP 113/62
[2019-03-25 09:30] LABS: AMORPHOUS SEDIMENT SMALL (NEGATIVE); APPEARANCE, URINE HAZY (CLEAR); BACTERIA, URINE AUTO NEGATIVE (NEGATIVE); BILIRUBIN, URINE AUTO NEGATIVE (NEGATIVE); BLOOD, URINE BLOOD 3+ (NEGATIVE); COLOR, URINE YELLOW (YELLOW); GLUCOSE, URINE (UA) AUTO NEGATIVE (NEGATIVE); KETONE, URINE AUTO NEGATIVE (NEGATIVE); LEUKOCYTE ESTERASE, URINE AUTO NEGATIVE (NEGATIVE); MUCUS, URINE SMALL (NEGATIVE); NITRITE, URINE AUTO NEGATIVE (NEGATIVE); PROTEIN, URINE AUTO NEGATIVE (NEGATIVE); RBC, URINE AUTO TNTC /HPF (0-3); SPECIFIC GRAVITY URINE AUTO 1.017 (1.002-1.035); SQUAMOUS EPITHELIAL CELL UR AU 1 /HPF (0-6); UROBILINOGEN, URINE AUTO 0.2 mg/dL (0.0-2.0); WBC, URINE AUTO 4 /HPF (0-3)
== END 2019-03-25 09:50 | disposition home or self-care (01) ==
LOC: M LDO 07:02
PROVIDERS: ATTEND Obstetrics & Gynecology
DX: O26.893 Other specified pregnancy related conditions, third trimester (principal); R10.30 Lower abdominal pain, unspecified; R39.15 Urgency of urination; Z3A.32 32 weeks gestation of pregnancy
CPT/HCPCS: 59025; 81001; 87086; G0378; G0463

== ENCOUNTER 2019-04-08 22:13 | Outpatient (CLI) | payer OTHER ==
[~2019-04-08] VITALS: Ht 157.5 cm; Wt 74.1 kg
== END 2019-04-09 00:15 | disposition home or self-care (01) ==
LOC: M LDO 22:13
PROVIDERS: ATTEND Obstetrics & Gynecology
DX: O26.893 Other specified pregnancy related conditions, third trimester (principal); N89.8 Other specified noninflammatory disorders of vagina; O47.03 False labor before 37 completed weeks of gestation, third trimester; Z3A.34 34 weeks gestation of pregnancy
CPT/HCPCS: 59025; G0378; G0463

== ENCOUNTER 2019-05-04 19:18 | Outpatient (CLI) | payer OTHER ==
[~2019-05-04] VITALS: Ht 154.9 cm; Wt 78.1 kg
[2019-05-04 19:36] VITALS: BP 121/72
[2019-05-04 21:28] LABS: HEMOGLOBIN 11.1 g/dl (12.0-15.5); MEAN CORPUSCULAR HEMOGLOBIN 29.2 pg (27.0-33.0); MEAN CORPUSCULAR HGB CONC 33.6 g/dl (32.0-36.5); MEAN CORPUSCULAR VOLUME 86.8 fl (80.0-96.0); PLATELET COUNT, AUTOMATED 150 10^3/uL (150-450); WHITE BLOOD COUNT 10.9 10^3/uL (4.0-10.0)
[2019-05-04 21:48] LABS: ALBUMIN 2.7 GM/DL (3.2-5.2); ALT/SGPT 22 U/L (12-78); BILIRUBIN,TOTAL 0.2 MG/DL (0.2-1.0); BLOOD UREA NITROGEN 13 MG/DL (7-18); CALCIUM LEVEL 8.8 MG/DL (8.5-10.1); CARBON DIOXIDE LEVEL 24 MEQ/L (21-32); CHLORIDE LEVEL 107 MEQ/L (98-107); CREATININE FOR GFR 0.64 MG/DL (0.55-1.30); GLOMERULAR FILTRATION RATE > 60.0 (>60); GLUCOSE, FASTING 89 MG/DL (70-100); POTASSIUM SERUM 3.8 MEQ/L (3.5-5.1); SODIUM LEVEL 138 MEQ/L (136-145); TOTAL PROTEIN 6.5 GM/DL (6.4-8.2)
--- NOTE | 2019-05-05 16:28 | HPE ---
DATE OF ADMISSION: 05/04/2019 This lady is a 23-year-old 1, para 0, last menstrual period (LMP) 08/09/2018, estimated date of confinement (EDC) 05/16/2019. She is at 38 and 4 weeks of gestation, who came in to labor and delivery without phoning ahead. Her history is that she had a rash that started at her umbilicus. It was itchy. It was intense and now it has progressed to her upper chest. Her risk factors are primary . No other issues. Her labs show A positive, HIV negative, hepatitis negative, rapid plasma reagin (RPR) negative, rubella immune. Varicella immune. Pap normal. Urine negative. Gonorrhea and chlamydia negative. 1-hour glucose was 125 and group B Streptococcus (GBS) is pending. Her blood pressure is 121/72, respirations are 18, pulse 82, temperature 96.9. Urine is 10/10, pH 7 and the rest is negative. Her evaluations of a category one strip with intermittent spaced out contractions and good accelerations, moderate variability and normal baseline and kick chart is quite obvious, as evaluating her abdomen you can see baby is extremely active. There is no vaginal bleeding or vaginal loss. On examination of her abdomen, she has a urticarial rash, pruritic eruptions, worse in her abdominal striae a papules and plaques and the concentrated areas in her umbilical area and spread laterally, caudad and cephalad. The diagnosis at the present time is pruritic urticarial papules and plaques (PUPPS) or polymorphic eruption of (PEP), based on the visualization of the rash. We elected to go ahead and do blood work in form of the complete blood count (CBC), a comprehensive metabolic panel (CMP), bile salts or bile acids. She had an nonstress test (NST), which was reactive. She is seeing the clinic on Monday. Will have a biophysical profile. Probably induction of labor at 39 weeks. Presently she was counseled to get some Caladryl to apply to the areas and she was given and a step-down course of prednisone starting with 30 mg for day one, 25 mg for day two, 20 mg for day three, 15 mg for day four, 10 mg for day five. All questions were answered. The rest of the examination was unremarkable. She is normocephalic, atraumatic. Neck full range of motion. Pupils equal and reactive to light. Distal pulse symmetric. No evidence of deep venous thrombosis (DVT), pulmonary embolism (PE), or superficial phlebitis. No wheezes or rhonchi. Abdomen is soft. She does have the predominant rash. Four quadrant bowel sounds are noted and symphysis fundus height is appropriate. She has a rash. She has tattoos and she has pruritus. She has no arthralgia, myalgia or complaint joint pain. No complaint of cough, wheeze, shortness of breath or dyspnea on exertion. No bruising. No bleeding. Neurologically complete. No incontinency, urgency or frequency. No nausea, vomiting, diarrhea or constipation. No diabetic issues. She has no BODY FITTER. PAST MEDICAL AND SURGICAL HISTORY: Unremarkable. FAMILY HISTORY: Noncontributory. SOCIAL HISTORY: She does not smoke, drink, abuse drugs. She is . 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 IN SUMMARY: We have a 38-week patient with a two week history of possibly PUPPS for medication, evaluation and probably induction of labor at 39 weeks. The patient is to keep her appointment on Monday.
== END 2019-05-04 21:20 | disposition home or self-care (01) ==
LOC: M LDO 19:18
PROVIDERS: ATTEND Obstetrics & Gynecology
DX: O26.893 Other specified pregnancy related conditions, third trimester (principal); O26.86 Pruritic urticarial papules and plaques of pregnancy (PUPPP); Z3A.38 38 weeks gestation of pregnancy
CPT/HCPCS: 36415; 59025; 80053; 82239; 85027; G0378; G0463

== ENCOUNTER 2019-05-09 19:50 | Inpatient (IN) | payer OTHER ==
[~2019-05-09] VITALS: Ht 157.5 cm; Wt 78.1 kg
[2019-05-09] MEDS ORDERED: LACTATED RINGER'S 1000 ML IV STA (20:03)
[2019-05-09 20:13] VITALS: BP 130/70
[2019-05-09] MEDS ORDERED: BENA25CA4 PO (20:15)
[2019-05-09] MEDS ORDERED: PRED5PAK PO (20:15)
[2019-05-09 20:46] LABS: HEMATOCRIT 31.5 % (36.0-47.0); HEMOGLOBIN 10.6 g/dl (12.0-15.5); MEAN CORPUSCULAR HEMOGLOBIN 29.3 pg (27.0-33.0); MEAN CORPUSCULAR HGB CONC 33.7 g/dl (32.0-36.5); PLATELET COUNT, AUTOMATED 139 10^3/uL (150-450); RED BLOOD COUNT 3.62 10^6/uL (4.00-5.40); WHITE BLOOD COUNT 14.4 10^3/uL (4.0-10.0)
[2019-05-09] MEDS ORDERED: miSOPROStol 50 MCG 1/2 TAB (S0191) PO ONE (21:00)
--- NOTE | 2019-05-09 21:12 | HPEPDOC ---
Obstetrical History & Physical General Date of Admission May 09, 2019 at 19:50 History of Present Illness 23 yo at 39+0 weeks gestation by 10+0 week US on 15Oct2018 presents to L&D for IOL this evening due to severe PUPPs. She reports feeling well this evening other than her continued itching and skin irritation. She denies any vaginal bleeding or leakage of fluid. She endorses excellent movement. Her has otherwise been uncomplicated. 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 pertinent history Past Medical History Medical History Migraines Surgical History: [place] teeth, Other (Submandibular lymph node removal, PRK) Family History Significant Family History: No pertinent family hx Social History Marital Status: Family situation: Spouse/partner home Psychosocial History: No pertinent psych hx * Smoker: non-smoker Alcohol: Denies Drugs: denies Imunizations Tdap status: current Influenza Status: current Allergies Coded Allergies: cephalexin (Verified Allergy, Intermediate, HIVES, 03/25/19) iodine (Verified Adverse Reaction, Intermediate, SEIZURE, 03/25/19) Medications Scheduled Diphenhydramine HCl (Benadryl) 25 Mg Capsule, 25 MG PO Q8H PRN for Itching Prednisone (Prednisone) 5 Mg Tab.ds.pk, 0 PO ASDIRECTED 6 day dose pack taper Vit/Iron Fum/Folic AC ( Tablet) 1 Tab Tab, 1 TAB PO DAILY Miscellaneous Medications [Tylenol] Physical Examination Physical Examination GENERAL: Alert and oriented times three. ABDOMEN: Gravid and non-tender to touch. FETUS: Is vertex (VTX) by sterile vaginal examination (SVE) EXTREMITIES: No edema. Laboratory Data [facility] Laboratory Tests 2 05/09/19 19:58: Serology Scanned Report Hepatitis B Testing 05/09/19 20:37: Nucleated Red Blood Cells % (auto) 0.0 CBC/BMP Laboratory Tests 05/09/19 20:37 Red Blood Count 3.62 L, Mean Corpuscular Volume 87.0, Mean Corpuscular Hemoglobin 29.3, Mean Corpuscular Hemoglobin Concent 33.7, Red Cell Distribution Width 13.9 Urine Culture: Urinary Tract Infection (Treated with macrobid) Pertinent Laboratoy Data Blood Type: A+ RBC Antibody Screen: Negative HIV: Negative Hepatitis B: Negative Hepatitis C: Unknown Rapid Plasma Reagin: Nonreactive Rubella: Immune Varicella: Immune Chlamydia/Gonorrhea: Negative Group B Streptococcus: Negative Quad Screen Test: Negative Cystic Fibrosis: Negative Glucose Tolerance Test: 125 Anatomy Ultrasound Placenta Location: Posterior Normal Anatomy: Yes (Initial concern for polyhydramnios and echogenic bowel, however M US revealed no such concerns) Placenta Previa: No Steroid Therapy Steroid Therapy: Yes (Patient has been on prednisone due to PUPPS) Vaginal Examination Dilation: 2cm Effacement: 60% Station: -3 Cervical Consistency: Medium Cervical Position: Posterior Presentation: Cephalic presentation Position: Vertex (occiput) Assessment Heart Rate (FHR): 130 Variability: Moderate Accelerations: Positive Decelerations: None Tocometer Contractions: Yes Frequency: irregular Strength: palpated as mild Assessment/Plan Assessment 23 yo at 39+0 weeks gestation presents for IOL for severe PUPPS. Plan Admit to L&D for IOL for severe PUPPS. Apply IV fluids. GBS negative. Cervix initially unfavorable. Will start with dose of misoprostol and consider guevara bulb placement and pitocin when able. Clear liquid diet. Patient may have epidural when in active labor. IV analgesia as desired in latent labor. Anticipate . All patient and questions answered. DO DANII Melton CHRISTOPHER J. DO May 09, 2019 21:12
[2019-05-09 22:27] VITALS: BP 112/60
[2019-05-09] MEDS ORDERED: diphenhydrAMINE INJ 50MG/ML VIAL (J1200) IV ONE (23:45)
[2019-05-09] MEDS ORDERED: ACETAMINOPHEN 500 MG TAB PO ONE (23:45)
[2019-05-10] VITALS (20 sets, daily range): BP systolic 100–136; BP diastolic 50–75
[2019-05-10] MEDS ORDERED: LR 1,000 ML IV SCH ×2 (02:05→18:45)
--- NOTE | 2019-05-10 02:08 | IPNPDOC ---
Text Note Date of Service The patient was seen on 05/10/19. NOTE Patient meggan regularly after cytotec. Cervix: /-2. FHR Cat I. Ctx Q2-3 mins. Good change after cytotec. Cervix now favorable. Contractions regular, will begin pitocin when able. Analgesia PRN. All patient questions answered. DO Dez VS,Angeles, I+O VS, Fishbone, I+O Laboratory Tests 05/09/19 20:37 Red Blood Count 3.62 L, Mean Corpuscular Volume 87.0, Mean Corpuscular Hemoglobin 29.3, Mean Corpuscular Hemoglobin Concent 33.7, Red Cell Distribution Width 13.9 Vital Signs Date Time Temp Pulse Resp B/P (MAP) Pulse Ox O2 Delivery O2 Flow Rate FiO2 05/10/19 01:20 98.7 75 16 117/56 (76) I&O- Last 24 Hours up to 6 AM 05/10/19 06:00 Intake Total 1000 ml Balance 1000 ml BEENA FOY DO May 10, 2019 02:08
[2019-05-10] MEDS ORDERED: OXYTOCIN DRIP 30 UNITS in APPROPRIATE DILUENT 1 EA IV SCH (02:15)
[2019-05-10] MEDS ORDERED: BUTORPHANOL 2 MG/ML INJ (J0595) IV ONE (02:15)
[2019-05-10] MEDS ORDERED: FENTANYL 2MCG/ML ROPIVACAINE 0.2% IN 0.9% NACL 100ML IVBAG As Ordered ONE (04:35)
[2019-05-10] MEDS ORDERED: EPIDURAL/PCA KEYS XX PRN (06:15)
[2019-05-10] MEDS ORDERED: REFRIGERATOR IV KEYS XX PRN (06:15)
[2019-05-10] MEDS ORDERED: LACTATED RINGER'S 1000 ML IV PRN (06:15)
[2019-05-10] MEDS ORDERED: ONDANSETRON 4MG/2ML VIAL (J2405) IV PRN ×3 (06:15→18:45)
[2019-05-10] MEDS ORDERED: NALOXONE INJ 0.4 MG/1 ML VIAL (J2310) IV PRN ×3 (06:15→17:45)
[2019-05-10] MEDS: FENTANYL/ROPIVACAINE/NACL BAG 100 ML EPIDURAL SCH (06:15)
[2019-05-10] MEDS ORDERED: ePHEDrine SULFATE 25 MG/5 ML(5MG/ML) SYRINGE IV PRN (06:15)
[2019-05-10] MEDS ORDERED: EPIDURAL COMMENT XX SCH (06:15)
[2019-05-10] MEDS ORDERED: diphenhydrAMINE INJ 50MG/ML VIAL (J1200) IV PRN ×2 (06:15→17:45)
--- NOTE | 2019-05-10 06:36 | IPNPDOC ---
Text Note Date of Service The patient was seen on 05/10/19. NOTE Patient had severe contraction pain and received an epidural. She is now co mfortable. Cervix: /1. Bulging bag of water. FHR Cat I. Progressing well. Pitocin currently at 4mU. Will continue to titrate to effect. All patient questions answered. Beena Garces DO VS,Angeles, I+O VS, [place], I+O Laboratory Tests 05/09/19 20:37 Red Blood Count 3.62 L, Mean Corpuscular Volume 87.0, Mean Corpuscular Hemoglobin 29.3, Mean Corpuscular Hemoglobin Concent 33.7, Red Cell Distribution Width 13.9 Vital Signs Date Time Temp Pulse Resp B/P (MAP) Pulse Ox O2 Delivery O2 Flow Rate FiO2 05/10/19 05:46 72 112/53 (72) 05/10/19 05:35 98.7 18 I&O- Last 24 Hours up to 6 AM 05/10/19 06:00 Intake Total 1750 ml Output Total 325 ml Balance 1425 ml BEENA GARCES DO May 10, 2019 06:36
--- NOTE | 2019-05-10 09:02 | IPNPDOC ---
Text Note Date of Service The patient was seen on 05/10/19. NOTE Morgan of Care/Intrapartum Note I assumed care of Jerry at [address] Garces. In brief, she is a 23yo with SIUP at 39w1d undergoing IOL for severe PUPPs that required a prednisone taper recently. She was started with cytotec, progressed with pitocin and is currently 9/C/-2, AROM performed with moderate meconium fluid noted but tolerated well. Vitals wnl. Cat I FHRT with +accels/-decels/mod lazarus [place]: ctx q1-3min Will continue to closely observe Will titrate pitocin per protocol Plan to recheck in 2hr or earlier as indicated GBS negative Safe to proceed Dr. Shazia Haley MD VS,Angeles, I+O VS, Angeles, I+O Laboratory Tests 05/09/19 20:37 Red Blood Count 3.62 L, Mean Corpuscular Volume 87.0, Mean Corpuscular Hemoglobin 29.3, Mean Corpuscular Hemoglobin Concent 33.7, Red Cell Distribution Width 13.9 Vital Signs Date Time Temp Pulse Resp B/P (MAP) Pulse Ox O2 Delivery O2 Flow Rate FiO2 05/10/19 06:51 74 106/54 (71) 05/10/19 05:35 98.7 18 I&O- Last 24 Hours up to 6 AM 05/10/19 06:00 Intake Total 1750 ml Output Total 325 ml Balance 1425 ml Shazia Haley MD May 10, 2019 09:02
--- NOTE | 2019-05-10 11:36 | IPNPDOC ---
Text Note Date of Service The patient was seen on 05/10/19. NOTE Intrapartum Note Pt comfortable, has been resting. Pitocin at 6mu. Vitals wnl Cat I FHRT SCE now C/C/0 Will do passive descent x 1 hour then begin pushing Will continue to closely monitor Safe to proceed Dr. Shazia Haley MD VS,Angeles, I+O VS, [place], I+O Laboratory Tests 05/09/19 20:37 Red Blood Count 3.62 L, Mean Corpuscular Volume 87.0, Mean Corpuscular Hemoglobin 29.3, Mean Corpuscular Hemoglobin Concent 33.7, Red Cell Distribution Width 13.9 Vital Signs Date Time Temp Pulse Resp B/P (MAP) Pulse Ox O2 Delivery O2 Flow Rate FiO2 05/10/19 06:51 74 106/54 (71) 05/10/19 05:35 98.7 18 I&O- Last 24 Hours up to 6 AM 05/10/19 06:00 Intake Total 1750 ml Output Total 325 ml Balance 1425 ml Shazia Haley MD May 10, 2019 11:36
[2019-05-10] MEDS ORDERED: diphenhydrAMINE 25 MG CAP PO ONE (11:45)
[2019-05-10] MEDS ORDERED: CLINDAMYCIN 900 MG in APPROPRIATE DILUENT 1 EA IV ONE (16:30)
[2019-05-10] MEDS ORDERED: GENTAMICIN 120 MG in D5W 50 ML IV ONE (16:30)
[2019-05-10] MEDS ORDERED: BICITRA 30ML SOLN UDC PO ONE (16:30)
--- NOTE | 2019-05-10 16:31 | IPNPDOC ---
Text Note Date of Service The patient was seen on 05/10/19. NOTE Decision for section Jerry pushed for >2 hours and has had no further descent beyond 0 station despite good maternal effort. There is also caput now as well as significant labial swelling. We discussed that this represents arrest of descent and counseled/consented for PLTCS and blood transfusion having discussed all r/b/a. Pitocin discontinued. Cat I FHRT with mod lazarus/+accels/early decels Vitals wnl. Anesthesia and nursing team aware of plan for section prophylactic abx (has allergy to cephalexin): gent and clinda Bicitra Will proceed to OR as soon as team is ready Dr. Shazia Haley MD VS,Angeles, I+O VS, [place], I+O Laboratory Tests 05/09/19 20:37 Red Blood Count 3.62 L, Mean Corpuscular Volume 87.0, Mean Corpuscular Hemoglobin 29.3, Mean Corpuscular Hemoglobin Concent 33.7, Red Cell Distribution Width 13.9 Vital Signs Date Time Temp Pulse Resp B/P (MAP) Pulse Ox O2 Delivery O2 Flow Rate FiO2 05/10/19 06:51 74 106/54 (71) 05/10/19 05:35 98.7 18 I&O- Last 24 Hours up to 6 AM 05/10/19 06:00 Intake Total 1750 ml Output Total 325 ml Balance 1425 ml Shazia Haley MD May 10, 2019 16:19
[2019-05-10] MEDS ORDERED: dexameTHASONE 4 MG/ML 1ML VIAL (J1100) As Ordered ONE (16:35)
[2019-05-10] MEDS ORDERED: ONDANSETRON 4MG/2ML VIAL (J2405) As Ordered ONE (16:35)
[2019-05-10] MEDS ORDERED: KETOROLAC 60 MG/2 ML VIAL (J1885) As Ordered ONE (16:35)
[2019-05-10] MEDS ORDERED: OXYTOCIN INJ 10 UNITS/ML VIAL (J2590) As Ordered ONE (16:35)
[2019-05-10] MEDS ORDERED: LIDOCAINE 2% W/EPIN INJ 20ML **PRES FREE As Ordered ONE (16:40)
[2019-05-10] MEDS ORDERED: MORPHINE PRES-FREE INJ 10 MG/10 ML VIAL (J2274) As Ordered ONE (17:14)
[2019-05-10] MEDS ORDERED: NALBUPHINE HCL 10 MG/ML AMP (J2300) IV PRN (17:45)
[2019-05-10] MEDS ORDERED: MEASLES,MUMPS,RUBELLA VACCINE INJ (MMR-II) (90707) SC SCH (18:30)
[2019-05-10] MEDS ORDERED: PERCOCET 5MG/325MG TAB PO PRN ×2 (18:30→18:45)
[2019-05-10] MEDS ORDERED: RHOGAM 300 MCG (1500 IU) INJ (J2790) IM SCH (18:30)
[2019-05-10] MEDS ORDERED: fentaNYL 100 MCG/2 ML INJECTION (J3010) IV PRN (18:45)
[2019-05-10] MEDS ORDERED: METOCLOPRAMIDE INJ 10MG/2ML VIAL (J2765) IV PRN (18:45)
[2019-05-10] MEDS: LR 1,000 ML IV SCH (19:39)
[2019-05-10] MEDS: DOCUSATE SODIUM 100 MG CAP PO SCH (20:47)
[2019-05-10] MEDS: METOCLOPRAMIDE INJ 10MG/2ML VIAL (J2765) IV PRN (21:41)
[2019-05-11] MEDS: KETOROLAC 30 MG/ML VIAL (J1885) IV SCH ×3 (00:14→12:51)
[2019-05-11] MEDS: ONDANSETRON 4MG/2ML VIAL (J2405) IV PRN ×2 (00:25→06:32)
[2019-05-11 02:00] VITALS: BP 114/56
[2019-05-11] MEDS: LR 1,000 ML IV SCH (03:11)
[2019-05-11] MEDS: METOCLOPRAMIDE INJ 10MG/2ML VIAL (J2765) IV PRN (03:57)
[2019-05-11 06:00] VITALS: BP 110/56
[2019-05-11 07:15] LABS: HEMATOCRIT 29.5 % (36.0-47.0); HEMOGLOBIN 9.7 g/dl (12.0-15.5); MEAN CORPUSCULAR HEMOGLOBIN 28.6 pg (27.0-33.0); MEAN CORPUSCULAR HGB CONC 32.9 g/dl (32.0-36.5); PLATELET COUNT, AUTOMATED 125 10^3/uL (150-450); RED BLOOD COUNT 3.39 10^6/uL (4.00-5.40); WHITE BLOOD COUNT 19.9 10^3/uL (4.0-10.0)
[2019-05-11] MEDS: DOCUSATE SODIUM 100 MG CAP PO SCH ×2 (08:47→20:41)
[2019-05-11] MEDS: PRENATAL VITAMINS CHEWABLE TABLET PO SCH (08:47)
--- NOTE | 2019-05-11 08:50 | IPN ---
DATE: 05/10/2019 This patient has requested circumcision of their male infant after discussing risks and benefits of circumcision, the medical and nonmedical indications, penile block, and aftercare. Expressed understanding of penile block, aftercare and bleeding, signed the consent form. All questions were answered. 20-minute discussion. We await the clearance by the grommet man.
--- NOTE | 2019-05-11 09:20 | IPN ---
DATE: 05/11/2019 day #1. This lady is a 23-year-old, 1, now para 1, was admitted 39 and 1 weeks of gestation for induction of labor because of pruritic urticarial papules and plaques (PUPPs) disease. She had a primary section for arrest of dilatation with meconium-stained liqua, delivered a male infant 7 pounds 4 ounces, meconium with cord times one, scores of 9 and 9 at 1 at 5 minutes, respectively. On her first day, her blood pressure is 110/56, respirations 70, pulse 82, temperature is 98.8. Her admitting hemoglobin 10.6, hematocrit 31.5, and platelets 139. day #1 is pending. On examination, she is normocephalic, atraumatic. Neck: Full range of motions. Pupils equal and reactive to light. Distal pulses are symmetric. No evidence of deep venous thrombosis (DVT), pulmonary embolus (PE), or superficial phlebitis. Chest is clear bilaterally to bases. No wheezes or rhonchi. No costovertebral angle (CVA) tenderness. Abdomen: Soft. Uterus two below. Lochia is moderate. Four quadrant bowel sounds are noted. Incision is clean and dry. The rest of the examination, unremarkable. She has no cough, wheeze, or shortness of breath or dyspnea on exertion. No rashes, lesions, or pruritus. No arthralgia, myalgia. No complaint of joint pain. No complaint of urgency or frequency. No nausea, vomiting, or diarrhea. In summary, we have a term gestation, admitted for induction of labor, had a primary section for arrest of dilatation. PLAN: Are discharge tomorrow with medications dispensed at [facility]. All questions were answered.
[2019-05-11 09:57] VITALS: BP 98/51
[2019-05-11 14:00] VITALS: BP 105/54
[2019-05-11 18:00] VITALS: BP 132/60
[2019-05-11] MEDS: IBUPROFEN 800 MG TAB PO SCH (20:40)
[2019-05-11 22:18] VITALS: BP 113/60
[2019-05-12 02:31] VITALS: BP 116/67
[2019-05-12] MEDS: IBUPROFEN 800 MG TAB PO SCH ×3 (04:52→20:17)
[2019-05-12 05:58] VITALS: BP 122/67
--- NOTE | 2019-05-12 07:41 | IPNPDOC ---
Text Note Date of Service The patient was seen on 05/12/19. NOTE POD2 PLTCS States feeling well, pain controlled with prescribed meds. Baby bonding and feeding well. No heavy VB. Lochia slowing. Ambulatory. Tolerating PO without issues. Chauhan out and voiding, UO adequate. VSSAF NAD A&O RRR CTAB LE no C/C/E Ut at U-2, [employer] C/D/I, bandage off CBC yesterday AM stable a/p: Doing well. Cont routine postop care. D/C tomorrow very likely. Sessions VSAngeles, I+O VSAngeles I+O Vital Signs Date Time Temp Pulse Resp B/P (MAP) Pulse Ox O2 Delivery O2 Flow Rate FiO2 05/12/19 05:58 97.7 83 18 122/67 (85) 05/11/19 22:18 96 I&O- Last 24 Hours up to 6 AM 05/12/19 06:00 Output Total 1350 ml Balance -1350 ml SESSIONS,YONAS Alcantara MD May 12, 2019 07:41
[2019-05-12] MEDS: PRENATAL VITAMINS CHEWABLE TABLET PO SCH (08:51)
[2019-05-12] MEDS: DOCUSATE SODIUM 100 MG CAP PO SCH ×2 (08:51→20:17)
[2019-05-12] MEDS: diphenhydrAMINE 25 MG CAP PO PRN ×2 (10:15→22:41)
[2019-05-12] MEDS: PERCOCET 5MG/325MG TAB PO PRN ×2 (14:31→20:22)
[2019-05-12 18:00] VITALS: BP 128/60
[2019-05-13] MEDS: IBUPROFEN 800 MG TAB PO SCH (04:06)
[2019-05-13] MEDS: PERCOCET 5MG/325MG TAB PO PRN (04:06)
[2019-05-13 06:00] VITALS: BP 113/60
[2019-05-13] MEDS: DOCUSATE SODIUM 100 MG CAP PO SCH (09:26)
[2019-05-13] MEDS: PRENATAL VITAMINS CHEWABLE TABLET PO SCH (09:26)
--- NOTE | 2019-05-13 09:50 | IPNPDOC ---
Progress Note Date of Service: May 13, 2019 Day#: 3 Progress Note POD 3 SUBJECT: Jerry is a 23yo [id number] s/p uncomplicated PLTCS for arrest of descent after undergoing IOL for severe PUPPS at 39wk, doing well post- op/ day # 3. She has been ambulating, voiding spontaneously without issue and tolerating regular diet. Breast and bottle feeding without issue. Reports lochia is minimal. Patient is ambulating well. Pain well controlled with motrin/percocet. No BM yet but passing flatus. No f/c/n/v/CP/SOB. OBJECTIVE: VITAL SIGNS: Within normal limits, afebrile. Alert and oriented times three. Abdomen: Fundus firm at U-2. Soft, appropriately tender to palpation with no rebound/guarding. Pfannensteil incision with steri strips overlying, clean/dry/intact with no erythema/induration/drainage Labs: pre-op H/H: 10.6/31.5 post-op H/H: 9.7/29.5 ASSESSMENT: Jerry is a 23yo [id number] s/p uncomplicated PLTCS for arrest of descent after undergoing IOL for severe PUPPS at 39wk, doing well post- op/ day # 3. Vitals within normal limits, afebrile, hemodynamically stable with no evidence of infection. She feels ready for discharge and is m eeting all milestones. PLAN: 1. Discharge to home today. 2. 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 Also benadryl OTC. Discussed how to take meds. 3. Patient to call the clinic for 2 week incision check with me 4. Discussed wound care, keep clean and dry, pat dry well after shower, remove steri strips in 1 week 5. Return precautions discussed: fevers, chills, foul smelling lochia, increasing abdominal pain, breast redness/pain or anything else concerning 6. Vaginal rest 6 weeks and no heavy lifting Dr. Shazia Haley MD VS, I&O, 24H, Fishbone Vital Signs/I&O Vital Signs Date Time Temp Pulse Resp B/P (MAP) Pulse Ox O2 Delivery O2 Flow Rate FiO2 05/13/19 06:00 97.7 63 18 113/60 (77) 05/11/19 22:18 96 Shazia Haley MD May 13, 2019 09:50
--- NOTE | 2019-05-13 09:54 | DS.PDOC ---
Discharge Summary General Date of Admission May 09, 2019 at 19:50 Date of Discharge May 13, 2019 Attending Physician: Shazia Haley MD Discharge Summary PROCEDURES PERFORMED DURING STAY: PLTCS ADMITTING DIAGNOSES: 1. IOL for severe PUPPS at 39wk DISCHARGE DIAGNOSES: 1. IOL for severe PUPPS at 39wk 2. PLTCS for arrest of descent COMPLICATIONS/CHIEF COMPLAINT: IOL for severe PUPPS at 39wk HISTORY OF PRESENT ILLNESS/HOSPITAL COURSE: Jerry is a 23yo [id number] s/p uncomplicated PLTCS for arrest of descent after undergoing IOL for severe PUPPS at 39wk, doing well post-op/ day # 3. At time of discharge, her vitals were within normal limits, afebrile, she was hemodynamically stable with no evidence of infection. She feels ready for discharge and is meeting all milestones. DISCHARGE MEDICATIONS: Please see below. ALLERGIES: Please see below. PHYSICAL EXAMINATION ON DISCHARGE: VITAL SIGNS: Within normal limits, afebrile. Alert and oriented times three. Abdomen: Fundus firm at U-2. Soft, appropriately tender to palpation with no rebound/guarding. Pfannensteil incision with steri strips overlying, clean/dry/intact with no erythema/induration/drainage LABORATORY DATA: pre-op H/H: 10.6/31.5 post-op H/H: 9.7/29.5 DIET: regular DISPOSITION: home DISCHARGE PLAN/INSTRUCTIONS: 1. Discharge to home today. 2. 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 Also benadryl OTC. Discussed how to take meds. 3. Patient to call the clinic for 2 week incision check with me 4. Discussed wound care, keep clean and dry, pat dry well after shower, remove steri strips in 1 week 5. Return precautions discussed: fevers, chills, foul smelling lochia, increasing abdominal pain, breast redness/pain or anything else concerning 6. Vaginal rest 6 weeks and no heavy lifting DISCHARGE CONDITION: Stable TIME SPENT ON DISCHARGE: Greater than minutes. Dr. Shazia Haley MD Vital Signs/I&Os Vital Signs Date Time Temp Pulse Resp B/P (MAP) Pulse Ox O2 Delivery O2 Flow Rate FiO2 05/13/19 06:00 97.7 63 18 113/60 (77) 05/11/19 22:18 96 Discharge Medications Scheduled Diphenhydramine HCl (Benadryl) 25 Mg Capsule, 25 MG PO Q8H PRN for Itching, (Reported) Prednisone (Prednisone) 5 Mg Tab.ds.pk, 0 PO ASDIRECTED, (Reported) 6 day dose pack taper Vit/Iron Fum/Folic AC ( Tablet) 1 Tab Tab, 1 TAB PO DAILY, (Reported) Miscellaneous Medications [Tylenol] , (Reported) Allergies Coded Allergies: cephalexin (Verified Allergy, Intermediate, HIVES, 03/25/19) iodine (Verified Adverse Reaction, Intermediate, SEIZURE, 03/25/19) Shazia Haley MD May 13, 2019 09:54
[2019-05-13] MEDS ORDERED: IBUP80TA PO (09:56)
[2019-05-13] MEDS ORDERED: COLA100C5 PO (09:56)
[2019-05-13] MEDS ORDERED: PERCOCET PO (09:56)
--- NOTE | 2019-05-13 10:24 | RO ---
DATE OF PROCEDURE: 05/10/2019 SURGEON: Shazia Haley MD ENVIRONMENTAL SERVICES ASSOCIATE: Eugene Humphreys MD CLINICAL SERVICE: Obstetrics. INDICATIONS FOR OPERATION: Jerry is a 23-year-old G1 now P1-0-0-1, who was admitted at 39 weeks for induction of labor for severe PUPPS with rash all over her abdomen onto her legs and arms, as well as her face, having required recent steroid taper, as well as multiple agents for antihistamine itching relief, nothing really relieved her symptoms and she was quite miserable. She underwent induction of labor with Cytotec and made good progress. Was then continued on Pitocin and progressed all the way to complete, complete 0 station. We did passive descent for an hour and then she began pushing, despite pushing for greater than 2 hours, she had no further descent beyond 0 station and then there was development of caput, as well as significant labial swelling and the diagnosis of arrest of descent was made. PREOPERATIVE DIAGNOSIS: Induction of labor for severe PUPPS at 39 weeks. POSTPROCEDURE DIAGNOSIS: Induction of labor for severe PUPPS at 39 weeks, arrest of descent. MATERIAL FORWARDED TO THE LAB FOR EXAMINATION: None. DESCRIPTION OF FINDINGS: Male in cephalic presentation, occiput transverse. scores of 9 and 9. Weight 3300 grams or 7 pounds 4 ounces. Normal appearing uterus, fallopian tubes and ovaries. There was meconium noted on artificial rupture of membranes earlier in her labor course, which was also confirmed again at the time of . INFECTION CLASSIFICATION: II ESTIMATED BLOOD LOSS: 700 mL. IV FLUIDS: 1800 mL URINE OUTPUT: 450 mL of blood-tinged urine. OPERATION PERFORMED: Primary low transverse section. DESCRIPTION OF OPERATION: After obtaining informed consent, the patient was taken to the operating room. She had epidural previously placed. She had Chauhan catheter in place, as well as bilateral sequential compression devices. She was prepped and draped in normal sterile fashion in dorsal supine position with the left lateral tilt. Hibiclens was used because she had significant allergy to Betadine. She was also given IV gentamicin and clindamycin because she had an allergy to Keflex previously. Time-out was performed to confirm patient name, date of , procedure and indication. Team was in agreement. Epidural anesthesia was found to be adequate using an Allis clamp. Pfannenstiel skin incision was made with the scalpel and carried through to the underlying layer of fascia. Fascia was incised in the midline and the incision was extended laterally with Ruiz scissors. Superior and inferior aspects of the fascial incision were grasped with Evy clamps, elevated and the underlying rectus muscles were dissected off bluntly and sharply. Peritoneum was entered digitally and the rectus muscles were in the midline. Peritoneal incision was extended superiorly and inferiorly with good visualization of the bladder. Bladder blade was inserted and the vesicouterine peritoneum was identified, grasped with pickups and entered sharply with Metzenbaum scissors. Incision was extended laterally and the bladder flap was created digitally. Bladder blade was reinserted and the lower uterine segment was scored in a transverse fashion with a scalpel. Uterus was entered bluntly and the incision was extended with traction. Bladder blade was removed and infant's head was elevated to level of the incision. Fundal pressure was applied. Head was delivered atraumatically in the OT position. Anterior shoulder, posterior shoulder and corpus were delivered without difficulty. The was immediately handed off to the awaiting intensive care unit (NICU) doctor after the cord was clamped x2 and cut, given the presence of meconium. Placenta was removed with traction on the umbilical cord and uterine massage and uterus was exteriorized and cleared of all clot and debris. Uterine incision was repaired with 0 Vicryl suture in a running locking fashion. Second layer of 0 Monocryl suture was used to close the hysterotomy incision in an imbricating fashion. Uterine incision was inspected and hemostasis was noted. Posterior cul-de-sac was irrigated. Uterus was returned to the abdomen. Gutters were cleared of all clots. Peritoneum was closed using 3-0 Vicryl suture in a running fashion rectus. Fascia was reapproximated with 0 Vicryl suture in a running fashion. Subcutaneous tissue was copiously irrigated. Elier fascia was reapproximated using 3-0 Vicryl suture in a running fashion. Skin edges were reapproximated using three inverted interrupted stitches using 3-0 Vicryl sutures, followed by a running subcuticular stitch using 4-0 Monocryl suture. The incision was cleaned using a wet lap and dried with a dry lap. Steri-Strips were applied in the usual fashion perpendicular to the Pfannenstiel incision. Telfa was layered on top of the Steri-Strips. Surgical drapes were removed. Sterile towel was removed. Pressure dressing was applied over the entire surgical incision. Vagina was cleared of all blood clot without active bleeding noted. Fundus was firm at U. All counts were correct times two. The procedure was without complications and the patient tolerated the procedure well. She was taken to the recovery room on labor and delivery in stable condition.
== END 2019-05-13 10:55 | disposition home or self-care (01) | DRG 773 ==
LOC: M LDI 19:50 → M OBS 05-10 19:59
PROVIDERS: ADMIT Obstetrics & Gynecology; ATTEND Obstetrics & Gynecology
PROC: 3E033VJ Introduction of Other Hormone into Peripheral Vein, Percutaneous Approach (ICD-10-PCS; 2019-05-09)
PROC: 10D00Z1 Extraction of Products of Conception, Low, Open Approach (ICD-10-PCS; principal; 2019-05-10 17:48)
DX: O26.86 Pruritic urticarial papules and plaques of pregnancy (PUPPP) (principal); Z79.52 Long term (current) use of systemic steroids; Z37.0 Single live birth; Z3A.39 39 weeks gestation of pregnancy; O32.4XX0 Maternal care for high head at term, not applicable or unspecified; Z88.8 Allergy status to other drugs, medicaments and biological substances